=== PATIENT | female | born 1990 | race Caucasian/White ===

== ENCOUNTER 2017-10-07 22:18 | Emergency (ER) | payer MEDICAID ==
--- NOTE | 2017-10-07 23:57 | ER Document Report ---
ED GI/ - General Chief Complaint: Abdominal Pain Stated Complaint: ABDOMINAL PAIN Time Seen by Provider: 10/07/17 23:45 Notes: Patient is a 27-year-old female who comes emergency department for chief complaint of mid to lower abdominal pain for about 1 week. She states she feels intermittent nausea. She also reports feeling of some pain in her mid to lower back. She denies vomiting, fever, dysuria, vaginal bleeding or discharge. She is sexually active with her . She also reports that she had bright red blood with bowel movement, previous bowel movement was 1 day ago and was normal. Past medical history of , denies any meds or any other medical history. Past Medical History - General Information source: Patient - Social History Smoking Status: Never Smoker Frequency of alcohol use: None Drug Abuse: None Lives with: Family Family History: Reviewed & Not Pertinent - Medical History Medical History: Negative Past Surgical History: Reports: Hx Section - Immunizations Immunizations up to date: Yes Hx Diphtheria, Pertussis, Tetanus Vaccination: Yes Review of Systems - Review of Systems Constitutional: No symptoms reported EENT: No symptoms reported Cardiovascular: See HPI Respiratory: No symptoms reported Gastrointestinal: See HPI Genitourinary: See HPI Female Genitourinary: See HPI Musculoskeletal: No symptoms reported Skin: No symptoms reported Hematologic/Lymphatic: No symptoms reported Neurological/Psychological: No symptoms reported Physical Exam - Vital signs Vitals: Temp Pulse BP Pulse Ox 98.8 F 88 131/89 H 100 10/07/17 22:41 10/07/17 22:41 10/07/17 22:41 10/07/17 22:41 Interpretation: Normal - General General appearance: Appears well In distress: None - HEENT Head: Normocephalic, Atraumatic Eyes: Normal Pupils: PERRL - Respiratory Respiratory status: No respiratory distress Chest status: Nontender Breath sounds: Normal Chest palpation: Normal - Cardiovascular Rhythm: Regular Heart sounds: Normal auscultation Murmur: No - Abdominal Inspection: Normal Distension: No distension Bowel sounds: Normal Tenderness: Tender - Minimal generalized lower abdominal tenderness, nonspecific , no guarding Organomegaly: No organomegaly - Back Back: Normal, Nontender. No: Tender, CVA tenderness - Extremities General upper extremity: Normal inspection, Nontender, Normal color, Normal ROM , Normal temperature General lower extremity: Normal inspection, Nontender, Normal color, Normal ROM , Normal temperature, Normal weight bearing. No: Clarke's sign - Neurological Neuro grossly intact: Yes Cognition: Normal Orientation: AAOx4 [place] Coma Scale Eye Opening: Spontaneous [place] Coma Scale Verbal: Oriented [place] Coma Scale Motor: Obeys Commands [place] Coma Scale Total: 15 Speech: Normal Motor strength normal: LUE, RUE, LLE, RLE Sensory: Normal - Psychological Associated symptoms: Normal affect, Normal mood - Skin Skin Temperature: Warm Skin Moisture: Dry Skin Color: Normal Course - Re-evaluation Re-evalutation: Patient declined both rectal and pelvic examinations to further evaluate her symptoms. CBC unremarkable, chemistry unremarkable, urine showing positive test. Will perform ultrasound, hCG quantitative to further evaluate her symptoms, this was discussed with patient and agreed upon Ultrasound with no abnormality, shows trace free fluid, I again discussed pelvic examination but this was again declined. Explained that I could not rule out infection or other abnormality as the cause of her symptoms. Provided with copy of her test and hCG level, too early to visualize intrauterine . No other pelvic abnormality noted based on current workup. Discussed follow-up, return precautions, patient states she is getting reflux, will also provide a stool softener for hemorrhoid treatment, also provided with Zofran for intermittent nausea. Patient states satisfaction and agreement with plan. - Vital Signs Vital signs: Temp Pulse Resp BP Pulse Ox 98.4 F 84 18 131/67 H 99 10/08/17 03:03 10/08/17 03:03 10/08/17 03:03 10/08/17 03:03 10/08/17 03:03 - Laboratory Result Diagrams: 10/08/17 00:05 10/08/17 00:05 Laboratory results interpreted by me: 10/08/17 10/08/17 10/08/17 00:05 00:05 00:05 Hgb 11.7 L Hct 35.5 L MCH 26.8 L RDW 15.2 H Beta HCG, Quant 337.37 H Urine Blood LARGE H Urine Urobilinogen 2.0 H Urine HCG, Qual POSITIVE H Discharge - Discharge Clinical Impression: Abdominal cramping, Nausea Condition: Stable Disposition: HOME, SELF-CARE Additional Instructions: Your workup shows early with no obvious abnormalities. Take Zofran as needed for nausea, take Colace stool softener to help reduce hemorrhoids, avoid straining on the toilet. Take Pepcid if needed for reflux. Follow-up with [facility] for additional management, alternatively follow-up with the health department if needed. Return if you worsen in anyway including vaginal bleeding, severe pain, fever, vomiting, or any other concerning symptoms. Prescriptions: Docusate Sodium [Colace 100 mg Capsule] 100 mg PO ASDIR PRN #30 capsule PRN Reason: Famotidine [Pepcid 20 mg Tablet] 20 mg PO BID #20 tablet Ondansetron [Zofran Odt 4 mg Tablet] 1 - 2 tab PO Q4H PRN #15 tab.rapdis PRN Reason: For Nausea/Vomiting Referrals: [facility] [Provider Group] - Follow up in 1 week
[2017-10-08 00:22] LABS: ABSOLUTE EOSINOPHILS # (AUTO) 0.1 10^3/uL (0.0-0.6); ABSOLUTE LYMPHOCYTES (AUTO) 2.7 10^3/uL (0.5-4.7); ABSOLUTE MONOCYTES (AUTO) 0.8 10^3/uL (0.1-1.4); ABSOLUTE NEUT (AUTO) 6.5 10^3/uL (1.7-8.2); BASOPHILS % (AUTO) 0.4 % (0-2); EOSINOPHILS % (AUTO) 1.2 % (0-6); HEMATOCRIT 35.5 % (36.0-47.0); HEMOGLOBIN 11.7 g/dL (12.0-15.5); LYMPHOCYTES % (AUTO) 26.2 % (13-45); MEAN CORPUSCULAR HEMOGLOBIN 26.8 pg (27.0-33.4); MEAN CORPUSCULAR HGB CONC 32.9 g/dL (32.0-36.0); MEAN CORPUSCULAR VOLUME 81 fl (80-97); MONOCYTES % (AUTO) 8.1 % (3-13); PLATELET COUNT 225 10^3/uL (150-450); RED BLOOD COUNT 4.37 10^6/uL (3.72-5.28); RED CELL DISTRIBUTION WIDTH 15.2 % (11.5-14.0); SEGMENTED NEUTROPHILS % (AUTO) 64.1 % (42-78); TOTAL CELLS COUNTED % (AUTO) 100 %; WHITE BLOOD COUNT 10.2 10^3/uL (4.0-10.5)
[2017-10-08 00:32] LABS: BILIRUBIN,URINE NEGATIVE (NEGATIVE); COLOR,URINE YELLOW; GLUCOSE, URINE NEGATIVE (NEGATIVE); KETONES,URINE NEGATIVE (NEGATIVE); LEUKOCYTE ESTERASE,URINE NEGATIVE (NEGATIVE); NITRITE,URINE NEGATIVE (NEGATIVE); PROTEIN,URINE NEGATIVE (NEGATIVE); URINE SPECIFIC GRAVITY 1.023
[2017-10-08 00:35] LABS: APPEARANCE,URINE CLEAR
[2017-10-08 00:44] LABS: ANION GAP 14 (5-19); BLOOD UREA NITROGEN 16 mg/dL (7-20); CALCIUM 9.2 mg/dL (8.4-10.2); CARBON DIOXIDE 26 mmol/L (22-30); CHLORIDE 103 mmol/L (98-107); GLUCOSE 83 mg/dL (75-110); SODIUM 142.5 mmol/L (137-145)
--- NOTE | 2017-10-08 02:31 | RADIOLOGY REPORT (SQ) ---
EXAM DESCRIPTION: U/S OB TRANSVAG W/DOPPLER CLINICAL HISTORY: 27 years Female, pelvic pain, nausea COMPARISON: None. TECHNIQUE: Complete first trimester obstetrical ultrasound with transvaginal imaging. FINDINGS: The uterus measures 9.9 x 5.5 x 6.5 cm. Endometrial thickness of 1.1 cm. No gestational sac identified. Nabothian cyst in the cervix. Small amount of free pelvic fluid. No myometrial abnormalities. Cervical length of 2.9 cm. The left ovary measures 4.5 x 2.6 x 2.7 cm. Doppler imaging of the left ovary was not performed. The right ovary is not identified. IMPRESSION: 1. No intrauterine gestation identified at this time. Differential considerations include early normal , miscarriage, or ectopic . Close continued clinical, laboratory, and sonographic follow-up recommended. 2. Small amount of free pelvic fluid.
[2017-10-08 03:04] VITALS: BP 131/67
== END 2017-10-08 03:04 | disposition home or self-care (01) ==
LOC: ER 22:18
DX: K21.9 Gastro-esophageal reflux disease without esophagitis (principal); R10.9 Unspecified abdominal pain; R11.0 Nausea; M54.5 Low back pain; Z32.01 Encounter for pregnancy test, result positive
CPT/HCPCS: 36415; 76817; 80048; 81001; 81025; 84702; 85025; 87086; 93976; 99284

== ENCOUNTER 2017-10-20 06:53 | Emergency (ER) | payer MEDICAID ==
--- NOTE | 2017-10-20 07:58 | ER Document Report ---
ED General - General Chief Complaint: Vag Bleeding, +preg <12wks Stated Complaint: VAGINAL BLEEDING Time Seen by Provider: 10/20/17 07:52 Mode of Arrival: Ambulatory Information source: Patient Notes: 27-year-old female presents with complaint of vaginal bleeding that started 2 days prior to arrival. Patient was seen in this emergency department on October 08, 2017 and was found to have a positive hCG with a quant of 395. She describes the bleeding as mild. She had one episode of sharp abdominal pain that has since resolved. She denies any passing of tissue, abdominal pain , vaginal discharge or dysuria. States she had 2 uncomplicated pregnancies previously. Also states that she took a home test last night which was negative. Denies any fever, chills, chest pain, shortness of breath. TRAVEL OUTSIDE OF THE [place] IN LAST 30 DAYS: No - HPI Onset: Other - 3 days prior to arrival Onset/Duration: Gradual Quality of pain: Sharp - now resolved Pain Level: Denies Associated symptoms: None. denies: Nausea, Vomiting Exacerbated by: Denies Relieved by: Denies Similar symptoms previously: No Recently seen / treated by doctor: Yes - [facility] Past Medical History - General Information source: Patient - Social History Smoking Status: Never Smoker Cigarette use (# per day): No Frequency of alcohol use: None Drug Abuse: None Lives with: Family Family History: Reviewed & Not Pertinent - Medical History Medical History: Negative Renal/ Medical History: Denies: Hx Peritoneal Dialysis Other: Past Surgical History: Reports: Hx Section - Immunizations Immunizations up to date: Yes Hx Diphtheria, Pertussis, Tetanus Vaccination: Yes Review of Systems - Review of Systems Constitutional: denies: Fever, Weakness EENT: No symptoms reported Gastrointestinal: Abdominal pain - Resolved Genitourinary: denies: Burning, Dysuria, Hematuria, Urgency Female Genitourinary: Vaginal bleeding Physical Exam - Vital signs Vitals: Temp Pulse Resp BP Pulse Ox 98.5 F 89 16 120/72 99 10/20/17 06:59 10/20/17 06:59 10/20/17 06:59 10/20/17 06:59 10/20/17 06:59 - General General appearance: Appears well, Alert - HEENT Head: Normocephalic, Atraumatic Eyes: Normal Pupils: PERRL - Abdominal Inspection: Normal Distension: No distension Bowel sounds: Normal Tenderness: Nontender Organomegaly: No organomegaly - Genitourinary External exam: Normal. No: Lesions Speculum exam: Cervix closed Vaginal bleeding: Mild Bimanuel exam: Normal. No: Cervical motion tender, Adnexal mass Course - Re-evaluation Re-evalutation: 10/20/17 19:04 27 y/o female presents with c/o vaginal bleeding. Patient was seen in ED 3 weeks prior to arrival where she was found to and had quant in the 300' s. Upon arrival vitals were removed and within normal limits. Patient does not appear toxic or dehydrated and is in NAD. Upon my exam is in not experiencing pain. Nursing notes and previous medical records were reviewed. significant findings include a negative urine HCG and a negative quant. explained findings to patient. She is having no fever, abdominal pain or significant bleeding and have low suspicion for retained POC. Advised patient to f/u with DIRECTOR OF ANESTHESIA SERVICES. Symptoms that should prompt the patients return were discussed including, return of abdominal pain, fever, heavy vaginal bleeding. Patient expresses understanding and is agreeable with discharge home. Laboratory 10/20/17 10/20/17 10/20/17 08:10 08:10 08:10 WBC 6.4 RBC 5.07 Hgb 13.3 Hct 40.9 MCV 81 MCH 26.2 L MCHC 32.5 RDW 15.4 H Plt Count 221 Seg Neutrophils % 60.6 Lymphocytes % 31.3 Monocytes % 6.2 Eosinophils % 1.4 Basophils % 0.5 Absolute Neutrophils 3.9 Absolute Lymphocytes 2.0 Absolute Monocytes 0.4 Absolute Eosinophils 0.1 Absolute Basophils 0.0 Beta HCG, Quant 5.99 Total Beta HCG NEGATIVE Urine Color YELLOW Urine Appearance CLEAR Urine pH 5.0 Ur Specific [place] 1.016 Urine Protein NEGATIVE Urine Glucose (UA) NEGATIVE Urine Ketones NEGATIVE Urine Blood MODERATE H Urine Nitrite NEGATIVE Urine Bilirubin NEGATIVE Urine Urobilinogen NEGATIVE Ur Leukocyte Esterase NEGATIVE Urine WBC (Auto) 1 Urine RBC (Auto) 22 Squamous Epi Cells Auto 1 Urine Mucus (Auto) RARE Urine Ascorbic Acid NEGATIVE Urine HCG, Qual NEGATIVE Bacteria (Wet Prep) Trichomonas (Wet Prep) Vaginal WBC Vaginal RBC Vaginal Yeast Chlamydia DNA (PCR) N.gonorrhoeae DNA (PCR) EMILEE Preparation 10/20/17 10/20/17 10/20/17 09:50 09:50 09:50 WBC RBC Hgb Hct MCV MCH MCHC RDW Plt Count Seg Neutrophils % Lymphocytes % Monocytes % Eosinophils % Basophils % Absolute Neutrophils Absolute Lymphocytes Absolute Monocytes Absolute Eosinophils Absolute Basophils Beta HCG, Quant Total Beta HCG Urine Color Urine Appearance Urine pH Ur Specific [place] Urine Protein Urine Glucose (UA) Urine Ketones Urine Blood Urine Nitrite Urine Bilirubin Urine Urobilinogen Ur Leukocyte Esterase Urine WBC (Auto) Urine RBC (Auto) Squamous Epi Cells Auto Urine Mucus (Auto) Urine Ascorbic Acid Urine HCG, Qual Bacteria (Wet Prep) 3+ BACTERIA SEEN Trichomonas (Wet Prep) NO TRICHOMONAS SEEN Vaginal WBC FEW WBCS SEEN Vaginal RBC 4+ RBCS SEEN Vaginal Yeast NO YEAST SEEN Chlamydia DNA (PCR) NOT DETECTED N.gonorrhoeae DNA (PCR) NOT DETECTED EMILEE Preparation Cancelled - Vital Signs Vital signs: Temp Pulse Resp BP Pulse Ox 98.3 F 58 L 18 112/63 100 10/20/17 10:41 10/20/17 10:41 10/20/17 10:41 10/20/17 10:41 10/20/17 10:41 - Laboratory Result Diagrams: 10/20/17 08:10 Laboratory results interpreted by me: 10/20/17 10/20/17 08:10 08:10 MCH 26.2 L RDW 15.4 H Urine Blood MODERATE H Procedures - Pelvic Exam Pelvic exam Cultures obtained: Yes Wet prep obtained: Yes Herpes culture obtained: No POC sent to lab: Yes Foreign body removed: No Bimanual exam performed: Yes Discharge - Discharge Clinical Impression: Vaginal bleeding Condition: Good Disposition: HOME, SELF-CARE Instructions: Vaginal Bleeding ([facility]) Referrals: HERNÁN RIVAS MD [Primary Care Provider] - Follow up in 3-5 days
[2017-10-20 08:43] LABS: ABSOLUTE EOSINOPHILS # (AUTO) 0.1 10^3/uL (0.0-0.6); ABSOLUTE MONOCYTES (AUTO) 0.4 10^3/uL (0.1-1.4); ABSOLUTE NEUT (AUTO) 3.9 10^3/uL (1.7-8.2); BASOPHILS % (AUTO) 0.5 % (0-2); EOSINOPHILS % (AUTO) 1.4 % (0-6); HEMATOCRIT 40.9 % (36.0-47.0); HEMOGLOBIN 13.3 g/dL (12.0-15.5); LYMPHOCYTES % (AUTO) 31.3 % (13-45); MEAN CORPUSCULAR HEMOGLOBIN 26.2 pg (27.0-33.4); MEAN CORPUSCULAR HGB CONC 32.5 g/dL (32.0-36.0); MEAN CORPUSCULAR VOLUME 81 fl (80-97); MONOCYTES % (AUTO) 6.2 % (3-13); PLATELET COUNT 221 10^3/uL (150-450); RED BLOOD COUNT 5.07 10^6/uL (3.72-5.28); RED CELL DISTRIBUTION WIDTH 15.4 % (11.5-14.0); SEGMENTED NEUTROPHILS % (AUTO) 60.6 % (42-78); TOTAL CELLS COUNTED % (AUTO) 100 %; WHITE BLOOD COUNT 6.4 10^3/uL (4.0-10.5)
[2017-10-20 08:52] LABS: APPEARANCE,URINE CLEAR; BILIRUBIN,URINE NEGATIVE (NEGATIVE); COLOR,URINE YELLOW; GLUCOSE, URINE NEGATIVE (NEGATIVE); KETONES,URINE NEGATIVE (NEGATIVE); LEUKOCYTE ESTERASE,URINE NEGATIVE (NEGATIVE); NITRITE,URINE NEGATIVE (NEGATIVE); PROTEIN,URINE NEGATIVE (NEGATIVE); URINE SPECIFIC GRAVITY 1.016; UROBILINOGEN,URINE NEGATIVE mg/dL (<2.0)
[2017-10-20 10:11] LABS: BACTERIA (WET MOUNT) 3+ BACTERIA SEEN; RBCS (WET MOUNT) 4+ RBCS SEEN; T.VAGINALIS (WET MOUNT) NO TRICHOMONAS SEEN; WBCS (WET MOUNT) FEW WBCS SEEN; YEAST (WET MOUNT) NO YEAST SEEN
[2017-10-20 10:48] VITALS: BP 112/63
[2017-10-20 11:38] LABS: CHLAM PCR NOT DETECTED (NOT DETECT); GON PCR NOT DETECTED (NOT DETECT)
== END 2017-10-20 10:48 | disposition home or self-care (01) ==
LOC: ER 06:53
DX: N93.9 Abnormal uterine and vaginal bleeding, unspecified (principal); R10.9 Unspecified abdominal pain
CPT/HCPCS: 36415; 81001; 81025; 84702; 85025; 87210; 87491; 87591; 99284

== ENCOUNTER 2020-06-30 13:12 | Emergency (ER) | payer MEDICAID ==
--- NOTE | 2020-06-30 13:59 | ER Document Report ---
ED Medical Screen (RME) - General Chief Complaint: Vag Bleeding, +preg <12wks Stated Complaint: VAGINAL BLEEDING,ABDOMINAL PAIN Time Seen by Provider: 06/30/20 13:53 Mode of Arrival: Ambulatory Information source: Patient Notes: 30 female presents to ED for complaint of vaginal bleeding pelvic cramping and passing some mucus. She states she is 12 to 13 weeks . She has had test but has not had an ultrasound. She states she is 3 para 2. She states it started out as bright red blood then changed to spotting then changed to brown and then dark red. She states she is not sure of her blood type. We will get her blood urine and transvaginal ultrasound at this time. She will be seen by another provider. I have greeted and performed a rapid initial assessment of this patient. A comprehensive ED assessment and evaluation of the patient, analysis of test results and completion of medical decision making process will be conducted by an additional ED providers. TRAVEL OUTSIDE OF THE [place] IN LAST 30 DAYS: No Past Medical History Renal/ Medical History: Denies: Hx Peritoneal Dialysis Past Surgical History: Reports: Hx Section - Immunizations Immunizations up to date: Yes Hx Diphtheria, Pertussis, Tetanus Vaccination: Yes Physical Exam - Vital signs Vitals: Temp Pulse Resp BP Pulse Ox 97.9 F 84 18 134/81 H 100 06/30/20 13:17 06/30/20 13:17 06/30/20 13:17 06/30/20 13:17 06/30/20 13:17 Course - Vital Signs Vital signs: Temp Pulse Resp BP Pulse Ox 97.9 F 84 18 134/81 H 100 06/30/20 13:17 06/30/20 13:17 06/30/20 13:17 06/30/20 13:17 06/30/20 13:17
[2020-06-30 14:37] LABS: ABSOLUTE EOSINOPHILS # (AUTO) 0.1 10^3/uL (0.0-0.6); ABSOLUTE LYMPHOCYTES (AUTO) 2.5 10^3/uL (0.5-4.7); ABSOLUTE MONOCYTES (AUTO) 0.5 10^3/uL (0.1-1.4); ABSOLUTE NEUT (AUTO) 6.2 10^3/uL (1.7-8.2); BASOPHILS % (AUTO) 0.3 % (0-2); EOSINOPHILS % (AUTO) 1.4 % (0-6); HEMATOCRIT 37.4 % (36.0-47.0); HEMOGLOBIN 12.6 g/dL (12.0-15.5); LYMPHOCYTES % (AUTO) 26.4 % (13-45); MEAN CORPUSCULAR HEMOGLOBIN 28.9 pg (27.0-33.4); MEAN CORPUSCULAR HGB CONC 33.6 g/dL (32.0-36.0); MEAN CORPUSCULAR VOLUME 86 fl (80-97); MONOCYTES % (AUTO) 5.3 % (3-13); PLATELET COUNT 202 10^3/uL (150-450); RED BLOOD COUNT 4.34 10^6/uL (3.72-5.28); RED CELL DISTRIBUTION WIDTH 15.5 % (11.5-14.0); SEGMENTED NEUTROPHILS % (AUTO) 66.6 % (42-78); TOTAL CELLS COUNTED % (AUTO) 100 %; WHITE BLOOD COUNT 9.3 10^3/uL (4.0-10.5)
[2020-06-30 15:00] LABS: ALBUMIN 4.4 g/dL (3.5-5.0); ALKALINE PHOSPHATASE 68 U/L (38-126); ANION GAP 9 (5-19); ASPARTATE AMINO TRANSFERASE 24 U/L (14-36); BILIRUBIN,DIRECT 0.1 mg/dL (0.0-0.4); BILIRUBIN,TOTAL 0.5 mg/dL (0.2-1.3); BLOOD UREA NITROGEN 8 mg/dL (7-20); CALCIUM 9.5 mg/dL (8.4-10.2); CARBON DIOXIDE 24 mmol/L (22-30); CHLORIDE 107 mmol/L (98-107); GLUCOSE 74 mg/dL (75-110); POTASSIUM 4.1 mmol/L (3.6-5.0); TOTAL PROTEIN 7.6 g/dL (6.3-8.2)
[2020-06-30 17:16] LABS: APPEARANCE,URINE CLEAR; BILIRUBIN,URINE NEGATIVE (NEGATIVE); COLOR,URINE STRAW; GLUCOSE, URINE NEGATIVE (NEGATIVE); KETONES,URINE NEGATIVE (NEGATIVE); LEUKOCYTE ESTERASE,URINE NEGATIVE (NEGATIVE); NITRITE,URINE NEGATIVE (NEGATIVE); PROTEIN,URINE NEGATIVE (NEGATIVE); URINE SPECIFIC GRAVITY 1.008; UROBILINOGEN,URINE NEGATIVE mg/dL (<2.0)
--- NOTE | 2020-06-30 17:28 | ER Document Report ---
ED GI/ - General Chief Complaint: Vag Bleeding, +preg <12wks Stated Complaint: VAGINAL BLEEDING,ABDOMINAL PAIN Time Seen by Provider: 06/30/20 13:53 Mode of Arrival: Ambulatory Notes: CHIEF COMPLAINT: Vaginal bleeding in HPI: 30-year-old female presenting with vaginal bleeding in over the last 2 days started as spotting yesterday heavier bleeding today. Reports mild pelvic cramping. Has been following with the health department for her OB care has not yet had ultrasound imaging ROS: See HPI - all other systems were reviewed and are otherwise negative Constitutional: no fever or recent illness Eyes: no drainage, no blurred vision ENT: no runny nose, no sore throat Cardiovascular: no chest pain Resp: no SOB, no cough GI: no vomiting, no diarrhea, positive pelvic pain : no dysuria, no vaginal discharge, positive vaginal bleeding Integumentary: no rash Allergy: no hives Musculoskeletal: no extremity pain or swelling Neurological: no numbness/tingling, no weakness MEDICATIONS: I agree with the patient medications as charted by the RN. ALLERGIES: I agree with the allergies as charted by the RN. PAST MEDICAL HISTORY/PAST SURGICAL HISTORY: Reviewed and agree as charted by RN. SOCIAL HISTORY: Reviewed and agree as charted by RN. FAMILY HISTORY: No significant familial comorbid conditions directly related to patient complaint EXAM: Reviewed vital signs as charted by RN. CONSTITUTIONAL: Alert and oriented and responds appropriately to questions. Well-appearing; well-nourished HEAD: Normocephalic; atraumatic EYES: PERRL; Conjunctivae clear, sclerae non-icteric ENT: normal nose; no rhinorrhea; moist mucous membranes; pharynx without lesions noted NECK: Supple without meningismus; non-tender; no cervical lymphadenopathy, no masses CARD: RRR; no murmurs, no clicks, no rubs, no gallops; symmetric distal pulses RESP: Normal chest excursion without splinting or tachypnea; breath sounds clear and equal bilaterally; no wheezes, no rhonchi, no rales ABD/GI: Normal bowel sounds; non-distended; soft, non-tender, no rebound, no guarding; no palpable organomegaly or masses : 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 External genitalia normal. No skin lesions noted. Pelvic Exam: Small amount of dark red blood in the vaginal vault no clots. No purulent discharge. Cervix appears normal. No CMT. cervical os is closed. No lesions or masses. Uterus enlarged consistent with 10 to 12-week gestation and non tender. Right/Left adnexa normal size and non tender. BACK: The back appears normal and is non-tender to palpation, there is no CVA tenderness EXT: Normal ROM in all joints; non-tender to palpation; no cyanosis, no effusions, no edema SKIN: Normal color for age and race; warm; dry; good turgor; no acute lesions noted NEURO: Moves all extremities equally; Motor and sensory function intact PSYCH: The patient's mood and manner are appropriate. Grooming and personal hygiene are appropriate. MDM: 30-year-old female presenting with vaginal bleeding in the setting of , threatened miscarriage. Beta hCG approximately 1600. Awaiting ultrasound report TRAVEL OUTSIDE OF THE [place] IN LAST 30 DAYS: No - Related Data Allergies/Adverse Reactions: No Known Allergies Allergy (Verified 06/30/20 16:32) Past Medical History - General Information source: Patient - Social History Smoking Status: Current Some Day Smoker Family History: Reviewed & Not Pertinent Renal/ Medical History: Denies: Hx Peritoneal Dialysis Past Surgical History: Reports: Hx Section - Immunizations Immunizations up to date: Yes Hx Diphtheria, Pertussis, Tetanus Vaccination: Yes Physical Exam - Vital signs Vitals: Temp Pulse Resp BP Pulse Ox 97.9 F 84 18 134/81 H 100 06/30/20 13:17 06/30/20 13:17 06/30/20 13:17 06/30/20 13:17 06/30/20 13:17 Course - Re-evaluation Re-evalutation: 06/30/20 18:28 I received a call from the reading radiologist there is concern for demise. Fetus measures 8 weeks and 4 days but does not have a discernible heartbeat. I spoke with Dr. Jesus Manuel Hu the HOSPITAL HOUSEKEEPER on-call about this he indicates patient should follow-up tomorrow with the health department in clinic for reevaluation. I spoke with the patient at length about this. She is aware that the has likely stopped and she is likely miscarrying now. She will follow up with the health department tomorrow. Bleeding precautions discussed - Vital Signs Vital signs: Temp Pulse Resp BP Pulse Ox 97.9 F 84 18 134/81 H 100 11/17/20 13:17 06/30/20 13:17 06/30/20 13:17 06/30/20 13:17 06/30/20 13:17 - Laboratory Result Diagrams: 06/30/20 14:15 06/30/20 14:15 Laboratory results interpreted by me: 06/30/20 06/30/20 06/30/20 14:15 14:15 14:15 RDW 15.5 H Glucose 74 L Beta HCG, Quant 1634.40 H Urine Blood LARGE H Discharge - Discharge Clinical Impression: demise, Bacterial vaginitis Condition: Stable Disposition: HOME, SELF-CARE Instructions: Miscarriage ([facility]) Additional Instructions: 1. follow up with OB for further evaluation and treatment call for appointment. There is concern that the has stopped and you have had a demise. You may expect more cramping and bleeding, if you saturate greater than 2 pads per hour for 2 consecutive hours return for reevaluation. It was also noted that you have bacterial vaginitis which is a bacterial vaginal infection please take the Flagyl to treat this Prescriptions: Metronidazole [Flagyl 500 mg Tablet] 500 mg PO BID #14 tablet Referrals: JESUS MANUEL HU MD [ACTIVE STAFF] - Follow up as needed
[2020-06-30 17:48] LABS: BACTERIA (WET MOUNT) 4+ BACTERIA SEEN; RBCS (WET MOUNT) 3+ RBCS SEEN; T.VAGINALIS (WET MOUNT) NO TRICHOMONAS SEEN; WBCS (WET MOUNT) 1+ WBCS SEEN; YEAST (WET MOUNT) NO YEAST SEEN
--- NOTE | 2020-06-30 18:16 | RADIOLOGY REPORT (SQ) ---
EXAM DESCRIPTION: U/S [id number] TRNABD 1GES W/ODOP IMAGES COMPLETED DATE/TIME: 06/30/2020 3:02 pm REASON FOR STUDY: vaginal bleeding and cramping. 12 COMPARISON: None. TECHNIQUE: Transabdominal static and realtime grayscale images acquired of the pelvis. Additional se lected spectral and color Doppler images recorded. All images stored on PACs. bHCG: Pending. CLINICAL DATES: BETTYE: 12/17/2020. EGA: 15 weeks 5 days LIMITATIONS: None. FINDINGS: FETUS: Single intrauterine . No heart beat identified. ULTRASOUND EGA: 8 weeks 6 days ULTRASOUND BETTYE: 02/04/2020 EFW: Not applicable less than 20 weeks. GESTATIONAL SAC: Irregularly shaped and located in the lower uterine segment. CRL: 2.2 cm FHR: No heart activity.. UTERUS: The echotexture the uterus is heterogenous. The uterus measures 14.3 x 8.8 x 7.1 cm. No ma sses. No anomalies. CERVICAL LENGTH: 2.9 cm Closed. RIGHT ADNEXA: The right ovary measures 2.5 x 2.4 x 1.6 cm. Normal ovary with normal vascular flow. No adnexal free fluid. No adnexal masses. LEFT ADNEXA: The left ovary measures 3.9 x 2.1 x 1.9 cm. Normal ovary with normal vascular flow. No adnexal free fluid. No adnexal masses. FREE FLUID: None. OTHER: No other significant finding. IMPRESSION: 1. Intrauterine is identified. The gestational sac is irregular in shape and located in the lower uterine segment. No heart activity identified, findings are concerning f or demise. Correlation suggested and follow-up examination. EGA: 8 weeks 6 days Trimester of : First trimester - 0 to 13 weeks. COMMENT: 1. The results of this examination were discussed with the emergency department provider o barbie 06/30/2020 at 18:09 hours. TECHNICAL DOCUMENTATION: JOB ID: [id number] [employer]- All Rights Reserved rev Reading location - IP/workstation name: [email or web address]
[2020-06-30 18:47] VITALS: BP 138/83
[2020-06-30 19:08] LABS: CHLAM PCR NOT DETECTED (NOT DETECT)
== END 2020-06-30 18:43 | disposition home or self-care (01) ==
LOC: ER 13:12
DX: O02.1 Missed abortion (principal); O23.591 Infection of other part of genital tract in pregnancy, first trimester; B96.89 Other specified bacterial agents as the cause of diseases classified elsewhere
CPT/HCPCS: 36415; 76801; 80053; 81001; 84702; 85025; 86900; 86901; 87210; 87491; 87591; 99284